=== PATIENT | male | born 1955 | race Caucasian/White ===

== ENCOUNTER → 2017-07-15 | Outpatient (CLI) | payer SELFPAY ==
[~2017-07-15] MED LIST: ADVA250A INH; ALBUAER3 INH; ALPR1TAB3 PO; AMBI10TA PO; ASPI-183 PO; GLUCTES27; KETO2CRE TOPICAL; LOVA40TA PO; METF1000 PO; TRIA40P IA; UBID50CA4 PO
[2017-07-15 15:02] LABS: ALBUMIN 2.6 GM/DL (3.4-5.0); AST (GOT) 17 U/L (15-37); BICARBONATE 22.9 MEQ/L (21.0-32.0); BLOOD UREA NITROGEN 23 MG/DL (7-18); CALCIUM 8.9 MG/DL (8.5-10.1); CHLORIDE 106 MEQ/L (98-107); CREATININE 2.39 MG/DL (0.60-1.30); GLOMERULAR FILTRATION RATE 28 ML/MIN (>89); GLUCOSE,FASTING 98 MG/DL (74-99); SODIUM (NA) 140 MEQ/L (136-145)
[2017-07-15 15:05] LABS: ALKALINE PHOSPHATASE 131 U/L (45-117); ALT (GPT) 12 U/L (12-78); TOTAL BILIRUBIN ADULT 0.3 MG/DL (0.2-1.0); TOTAL PROTEIN 7.3 GM/DL (6.4-8.2)
[2017-07-15 15:46] LABS: HEMOGLOBIN A1C 6.9 % (4.3-6.0)
== END ==
LOC: CLAB 14:10
PROVIDERS: ATTEND Family Medicine
DX: R10.9 Unspecified abdominal pain (principal)
CPT/HCPCS: 36415; 80053; 82043; 83036